=== PATIENT | male | born 1995 | race American Indian/Alaskan Native ===

== ENCOUNTER 2017-09-06 15:15 | Emergency (ER) | payer SELFPAY ==
[2017-09-06 16:09] LABS: Basophils % (Auto) 0.7 % (0.0-1.8); Eosinophils % (Auto) 1.7 % (0.0-4.3); Hematocrit 45.1 % (35.5-45.6); Hemoglobin 15.2 gm/dl (11.8-15.2); Mean Corpuscular HGB Conc 34 % (32-34); Mean Corpuscular Hemoglobin 27 pg (28-32); Mean Corpuscular Volume 81 fl (84-94); Platelet Count 261 K/mm3 (140-440); Red Blood Count 5.56 M/mm3 (3.65-5.03); Red Cell Distribution Width 12.4 % (13.2-15.2); White Blood Count 4.4 K/mm3 (4.5-11.0)
[2017-09-06 16:14] LABS: BUN/Creatinine Ratio 14; Blood Urea Nitrogen 11 mg/dL (9-20); Calcium 9.1 mg/dL (8.4-10.2); Carbon Dioxide 24 mmol/L (22-30); Chloride 100.3 mmol/L (98-107); Glucose 155 mg/dL (75-100); Sodium 138 mmol/L (137-145)
[2017-09-06 17:31] LABS: Anion Gap 18 mmol/L; Potassium 4.4 mmol/L (3.6-5.0)
--- NOTE | 2017-09-06 22:42 | ED Elopement Review ---
ED Pt Elopement review - Results review Lab results: Laboratory Tests 09/06/17 09/06/17 09/06/17 15:39 15:39 18:19 WBC 4.4 L RBC 5.56 H Hgb 15.2 Hct 45.1 MCV 81 L MCH 27 L MCHC 34 RDW 12.4 L Plt Count 261 Lymph % (Auto) 38.9 H Mcmullen % (Auto) 7.3 Eos % (Auto) 1.7 Baso % (Auto) 0.7 Lymph # 1.7 Mcmullen # 0.3 Eos # 0.1 Baso # 0.0 Seg Neutrophils % 51.4 Seg Neutrophils # 2.3 Sodium 138 Potassium 4.4 Chloride 100.3 Carbon Dioxide 24 Anion Gap 18 BUN 11 Creatinine 0.8 Estimated GFR > 60 BUN/Creatinine Ratio 14 Glucose 155 H Calcium 9.1 Troponin T < 0.010 < 0.010 09/06/17 20:34 WBC RBC Hgb Hct MCV MCH MCHC RDW Plt Count Lymph % (Auto) Mcmullen % (Auto) Eos % (Auto) Baso % (Auto) Lymph # Mcmullen # Eos # Baso # Seg Neutrophils % Seg Neutrophils # Sodium Potassium Chloride Carbon Dioxide Anion Gap BUN Creatinine Estimated GFR BUN/Creatinine Ratio Glucose Calcium Troponin T < 0.010 - Call Back decision Pt Call Back Decision: No action required
[2017-09-07 11:33] VITALS: BP 152/83
== END 2017-09-06 23:09 | disposition left against medical advice (07) ==
LOC: ED 15:15
DX: Z53.21 Procedure and treatment not carried out due to patient leaving prior to being seen by health care provider (principal)
CPT/HCPCS: 36415; 80048; 84484; 85025; 93005; 93010

== ENCOUNTER 2022-03-06 03:02 | Emergency (ER) | payer SELFPAY ==
[2022-03-06] MEDS ORDERED: traMADol 50 MG TAB PO ONE (06:33)
[2022-03-06] MEDS ORDERED: TETANUS,DIPH,PERTUSS(ACELL) VACCINE 0.5 ML SYRINGE IM ONE (06:33)
[2022-03-06] MEDS ORDERED: LIDOCAINE (1%) 10 MG/1 ML VIAL 20 ML MDV INFILTRATI ONE (06:33)
--- NOTE | 2022-03-06 06:58 | Emergency Department Report ---
- General Chief Complaint: Wound/Laceration Stated Complaint: CUT HAND Time Seen by Provider: 03/06/22 06:32 Source: patient Mode of arrival: Ambulatory Limitations: No Limitations - History of Present Illness Initial Comments: Patient is a 26-year-old male who presents for laceration to left middle finger. Patient states he was playing with his pocket knife accidentally cut his finger tip. There is no nerve muscle or tendon damage. No nail damage. Range of motion remains intact. There is no numbness or tingling. Bleeding was controlled via direct pressure self applied by patient. - Related Data Home Medications Medication Instructions Recorded Confirmed Last Taken Nadolol [Corgard] 80 mg PO BID 09/06/17 09/06/17 1 Year Ago ~09/06/16 80 mg Previous Rx's Medication Instructions Recorded Last Taken Type traMADoL [Ultram] 50 mg PO Q6HR PRN #12 tablet 03/06/22 Unknown Rx Allergies Allergy/AdvReac Type Severity Reaction Status Date / Time diphenhydramine Allergy Unknown Verified 09/06/17 15:37 [From Benadryl] ibuprofen Allergy Unknown Verified 09/06/17 15:37 ED Review of Systems ROS: Stated complaint: CUT HAND Other details as noted in HPI Constitutional: denies: chills, fever Eyes: denies: eye pain, eye discharge, vision change ENT: denies: ear pain, throat pain Respiratory: denies: cough, shortness of breath, wheezing Cardiovascular: denies: chest pain, palpitations Endocrine: no symptoms reported Gastrointestinal: denies: abdominal pain, nausea, diarrhea Genitourinary: denies: urgency, dysuria Musculoskeletal: denies: back pain, joint swelling, arthralgia Skin: other (Laceration right middle finger) Neurological: denies: headache, weakness, paresthesias Psychiatric: denies: anxiety, depression Hematological/Lymphatic: denies: easy bleeding, easy bruising ED Past Medical Hx - Past Medical History Additional medical history: hypertropic cardiomyopathy - Social History Smoking Status: Never Smoker Substance Use Type: None - Medications Home Medications: Home Medications Medication Instructions Recorded Confirmed Last Taken Type Nadolol [Corgard] 80 mg PO BID 09/06/17 09/06/17 1 Year Ago History ~09/06/16 80 mg traMADoL [Ultram] 50 mg PO Q6HR PRN #12 tablet 03/06/22 Unknown Rx ED Physical Exam - General Limitations: No Limitations General appearance: alert, in no apparent distress - Head Head exam: Present: normocephalic, normal inspection - Eye Eye exam: Present: normal appearance, PERRL, EOMI Pupils: Present: normal accommodation - ENT ENT exam: Present: mucous membranes moist - Neck Neck exam: Present: normal inspection, full ROM. Absent: tenderness - Respiratory Respiratory exam: Present: normal lung sounds bilaterally. Absent: respiratory distress, wheezes, stridor - Cardiovascular Cardiovascular Exam: Present: regular rate, normal rhythm, normal heart sounds. Absent: systolic murmur, diastolic murmur, rubs, gallop - GI/Abdominal GI/Abdominal exam: Present: soft, normal bowel sounds. Absent: distended, tenderness - Rectal Rectal exam: Present: deferred - Extremities Exam Extremities exam: Present: normal inspection, full ROM, normal capillary refill - Expanded Upper Extremity Exam Left Hand Wrist exam: Present: full ROM, laceration. Absent: tenderness Neuro motor exam: Present: wrist extension intact, thumb opposition intact, thumb IP flexion intact, thumb adduction intact, fingers 2-5 abduction intact Neurosensory exam: Present: radial nerve intact Vascular: Present: normal capillary refill - Back Exam Back exam: Present: normal inspection, full ROM. Absent: CVA tenderness (R), CVA tenderness (L) - Neurological Exam Neurological exam: Present: alert, oriented X3, CN II-XII intact, normal gait, reflexes normal. Absent: motor sensory deficit - Expanded Neurological Exam Expanded Patient oriented to: Present: person, place, time Motor strength exam: RUE: 5, LUE: 5 Best Eye Response ([place]): (4) open spontaneously Best Motor Response ([place]): (6) obeys commands Best Verbal Response ([place]): (5) oriented [place] Total: 15 - Psychiatric Psychiatric exam: Present: normal affect, normal mood - Skin Skin exam: Present: warm, dry, normal color, other (Laceration as above). Absent: rash ED Course Vital Signs 03/06/22 03/06/22 03:05 03:11 Temperature 98.5 F Pulse Rate 76 Respiratory 18 Rate Blood Pressure 182/125 O2 Sat by Pulse 98 Oximetry - Laceration /Wound Repair Left Distal Finger Wound Location: upper extremity (Left middle finger tip laceration. Anesthesia 1% lidocaine x1 cc. Anesthesia was achieved, wound cleaned with 50 cc sterile saline, wound closed with 5.0 Prolene times 4 sutures. Edges well approximated all bleeding is controlled. Sterile dressing is applied patient tolerated procedure with mini) Sterile Dressing Applied?: Yes Progress: Left middle finger tip laceration repair, anesthesia 1% lidocaine as above, wound irrigated with sterile saline, wound closed with Prolene 5.0x1 sutures. Edges well approximated also bleeding controlled patient tolerated procedure with minimal distress patient given wound care instructions verbalized understanding of same ED Medical Decision Making - Medical Decision Making Left distal middle finger laceration see procedure note. All bleeding is controlled, patient tolerated procedure with minimal distress patient will be DC'd home in stable condition at this time. Patient given tetanus shot, patient DC'd home in stable condition at this time will follow up with primary care doctor in 2 to 3 days. Critical care attestation.: If time is entered above; I have spent that time in minutes in the direct care of this critically ill patient, excluding procedure time. ED Disposition Clinical Impression: Finger laceration Qualifiers: Encounter type: initial encounter Finger: middle finger Damage to nail status: unspecified Foreign body presence: unspecified Laterality: left Qualified Code(s): S61.213A - Laceration without foreign body of left middle finger without damage to nail, initial encounter Disposition: 01 HOME / SELF CARE / HOMELESS Is pt being admited?: No Does the pt Need Aspirin: No Condition: Stable Instructions: Laceration Care, Adult Additional Instructions: Take medication as prescribed, follow-up with your doctor in 2 to 3 days for wound check. In 7 to 10 days for suture removal. Prescriptions: traMADoL [Ultram] 50 mg PO Q6HR PRN #12 tablet PRN Reason: Pain Referrals: CHEYENNE RAWLS MD [Staff Physician] - 3-5 Days Forms: Work/School Release Form(ED) Time of Disposition: 07:16
[2022-03-06 07:24] VITALS: BP 166/105
== END 2022-03-06 07:48 | disposition home or self-care (01) ==
LOC: ED 03:02
DX: S61.213A Laceration without foreign body of left middle finger without damage to nail, initial encounter (principal); W26.0XXA Contact with knife, initial encounter; Y93.89 Activity, other specified; Y92.89 Other specified places as the place of occurrence of the external cause; Y99.8 Other external cause status
CPT/HCPCS: 90471; 90715; 99282